=== PATIENT | male | born 1965 | race Caucasian/White ===

== ENCOUNTER 2019-07-02 13:34 | Inpatient (IN) | payer MEDICARE ==
[~2019-07-02] VITALS: Ht 185.4 cm; Wt 174.1 kg
[2019-07-02 14:05] VITALS: BP 154/93
--- NOTE | 2019-07-02 14:33 | NUR ---
NSG NOTE; ADMISSION DIRECT ADMIT TO ROOM 105 AT [address] CROWELL'S OFFICE ACCOMP BY SELF C/O COUGH X 5 DAYS AND HAD GONE TO DR CROWELL'S OFFICE TODAY TO GET PAIN MED REFILL. DR Guo NOTICED A COUGH AND PERFORMED A CHEST XR AND ADMITTED PT FOR PNEUMONIA
[2019-07-02] MEDS ORDERED: OXYC-316 PO ×2 (14:51)
[2019-07-02] MEDS ORDERED: LISI1TAB23 PO (14:51)
[2019-07-02] MEDS ORDERED: ATOR10TA60 PO (14:51)
[2019-07-02] MEDS ORDERED: SERT100T8 PO (14:51)
[2019-07-02] MEDS ORDERED: METF10007 PO (14:51)
[2019-07-02] MEDS ORDERED: TRAZ-120 PO (14:51)
[2019-07-02] MEDS ORDERED: DEXTROSE 50% 25 GM / 50ML DISP.SYRIN. IV PRN (15:15)
[2019-07-02 15:25] LABS: BASO # 0.1 x10^3/uL (0.0-0.2); BASO % 1 % (0-3); EOS # 0.6 x10^3/uL (0.0-0.7); EOS % 5 % (0-3); HEMATOCRIT 44.5 % (39.0-53.0); HEMOGLOBIN 14.3 g/dL (13.0-17.5); LYMPH # 1.7 x10^3/uL (1.0-4.8); LYMPH % 14 % (24-48); MEAN CORPUSCULAR HEMOGLOBIN 27 pg (25-35); MEAN CORPUSCULAR HGB CONC 32 g/dL (31-37); MEAN CORPUSCULAR VOLUME 84 fL (79-100); MONO # 0.9 x10^3/uL (0.0-1.1); MONO % 8 % (0-9); NEUT # 8.5 x10^3uL (1.8-7.7); NEUT % 72 % (31-73); PLATELET COUNT 284 x10^3/uL (140-400); RED BLOOD COUNT 5.29 x10^6/uL (4.30-5.70); RED CELL DISTRIBUTION WIDTH 16.5 % (11.5-14.5); WHITE BLOOD COUNT 11.9 x10^3/uL (4.0-11.0)
[2019-07-02 15:35] LABS: ALBUMIN 3.5 g/dL (3.4-5.0); ALBUMIN/GLOBULIN RATIO 0.8 (1.0-1.7); CALCIUM 8.7 mg/dL (8.5-10.1); CREATININE 1.1 mg/dL (0.7-1.3); GFR 70.6; MAGNESIUM 1.9 mg/dL (1.8-2.4); POTASSIUM 3.9 mmol/L (3.5-5.1); TOTAL BILIRUBIN 0.4 mg/dL (0.2-1.0); TOTAL PROTEIN 7.9 g/dL (6.4-8.2)
[2019-07-02] MEDS ORDERED: oxyCODONE/APAP 7.5/325 1 TAB TABLET PO PRN (16:30)
[2019-07-02] MEDS ORDERED: traZODone 50 MG TABLET. PO PRN (16:30)
[2019-07-02] MEDS: metFORMIN 500 MG TABLET PO SCH (17:13)
[2019-07-02] MEDS: AZITHROMYCIN 500 MG in IV NORMAL SALINE 250ML 250 ML IV SCH (17:14)
--- NOTE | 2019-07-02 17:19 | HP ---
ADMIT DATE: 07/02/2019 HISTORY OF PRESENT ILLNESS: The patient is a 53-year-old male patient who was referred from his primary care physician's office where he came there for his monthly visit. He apparently complained of shortness of breath and cough and has had chest x-ray, showed that he has bilateral lung infiltrate. In fact, he reports diffuse heterogenous opacities throughout both lungs. No consolidation are seen, prominent lung markings in the lower lung zones likely subsegmental atelectasis or scarring. The tracheobronchial tree and hilar structures are normal, no pleural effusion or pneumothorax. Heart and mediastinum showed the cardiomediastinal silhouette is within normal range. The final impression, the patient has multifocal bronchopneumonia with no airspace consolidation. Therefore, the patient was admitted directly to the hospital to be treated for community-acquired pneumonia. The patient himself denied any chest pain. Denied any chills, rigors or fever. PAST MEDICAL HISTORY: Significant for morbid obesity, obstructive sleep apnea, hypertension, hyperlipidemia, type 2 diabetes mellitus and recurrent UTIs. He has also chronic back pain. PAST SURGICAL HISTORY: Significant for bilateral inguinal hernia repair, right knee arthroscopic and left ankle arthroscopic surgery. ALLERGIES: He has no known drug allergies. MEDICATIONS: He is currently on following medications: He is on atorvastatin 10 mg at bedtime, lisinopril/hydrochlorothiazide one tablet daily, Endocet 7.5/325 one tablet 3 times a day, oxycodone/acetaminophen 7.5/325 one tablet every 6 hours, sertraline 100 mg at bedtime, trazodone 50 mg 1-2 tablets at bedtime, metformin 1000 mg twice a day. FAMILY HISTORY: He has 1 brother and 2 sisters, older sister has diabetes. Father in his late 60s because of alcoholism. Mother in late 60s because of breast cancer. SOCIAL HISTORY: He is , has a son and daughter. He never smoked, does not drink alcohol or use any recreational drugs. Currently disabled because of back pain. REVIEW OF SYSTEMS: The patient denied any blurring of vision, cataract, glaucoma or macular degeneration. Denied any earache, tinnitus or sensorineural deafness. Denied any nosebleeds, stuffy nose or postnasal drip. Denied any sore throat, sore tongue, toothache, hoarseness of voice or difficulty swallowing. Denied any nausea, vomiting, diarrhea or constipation. Denied any hematemesis, melena or hematochezia. Denied any dysuria, frequency, hematuria when I saw him today. PHYSICAL EXAMINATION: GENERAL: On arrival to the hospital, he looked well and was clearly in no apparent respiratory distress. There was no pallor, jaundice, cyanosis or thyromegaly. No jugular venous distention. No limb edema. VITAL SIGNS: His heart rate was 92, blood pressure was 154/93, temperature was 98.2, respiratory rate was 28 and oxygen saturation was 87% on room air. HEAD, EYES, EARS, NOSE AND THROAT: Showed normocephalic, atraumatic. NECK: Supple. HEART: Showed normal first and second heart sounds. No gallop or murmur. CHEST: Shows central trachea, equal bilateral expansion, air entry, vesicular breath sounds. I really could not appreciate any crepitation or rhonchi. ABDOMEN: Distended, soft, nontender. NEUROLOGIC: He was awake, alert, responding appropriately. All cranial nerves intact. EXTREMITIES: He moves extremities without difficulty, ambulates without assistance or assistive devices. LABORATORY DATA: On arrival showed a white cell q of 11,900, hemoglobin 14, hematocrit 44, MCV 84 and platelet count of 286,000 with normal manual differential. His chemistry showed a serum sodium 138, potassium 3.9, chloride 98, bicarbonate 29, anion gap of 11, BUN 12, creatinine 1.1, estimated GFR was 70 mL per minute. His glucose was 96, lactic acid was 1.3, calcium was 8.7, magnesium was 1.9. Total bilirubin, AST, ALT, alkaline phosphatase were normal. Total protein was 7.9, albumin was 3.5. ASSESSMENT AND PLAN: This is a 53-year-old male patient who was admitted directly from his primary care physician's office for community-acquired pneumonia. We will start him on IV Rocephin as well as Zithromax. We will continue all his medication and will also send blood for culture and sputum for culture and sensitivity and we will decide further management according to his response. ZULAY HERRING MD DR: YANELI/simon JOB#: [id number] / [id number]
[2019-07-02] MEDS ORDERED: BENZONATATE 100 MG CAPSULE. PO ONE (17:30)
[2019-07-02] MEDS: BENZONATATE 100 MG CAPSULE. PO SCH (17:36)
[2019-07-02 20:12] VITALS: BP 126/83
[2019-07-02] MEDS: IPRATRPIUM/ALBUTEROL 0.5/2.5MG 3 ML NEBU. NEB SCH (20:15)
[2019-07-02] MEDS: ATORVASTATIN CALCIUM 10 MG TABLET. PO SCH (21:40)
[2019-07-02 23:29] VITALS: BP 148/75
[2019-07-03 05:12] VITALS: BP 127/88
[2019-07-03] MEDS: IPRATRPIUM/ALBUTEROL 0.5/2.5MG 3 ML NEBU. NEB SCH ×4 (05:28→20:50)
[2019-07-03] MEDS: SERTRALINE 100 MG TABLET. PO SCH (07:41)
[2019-07-03] MEDS: oxyCODONE/APAP 7.5/325 1 TAB TABLET PO SCH (07:41)
[2019-07-03] MEDS: hydroCHLOROthiazide 12.5 MG CAPSULE PO SCH (07:42)
[2019-07-03] MEDS: metFORMIN 500 MG TABLET PO SCH ×2 (07:42→17:09)
[2019-07-03] MEDS: LACTOBACILLUS RHAMNOSUS GG 1 CAPSULE. PO SCH ×2 (07:42→20:51)
[2019-07-03] MEDS: BENZONATATE 100 MG CAPSULE. PO SCH ×3 (07:42→20:51)
[2019-07-03] MEDS: LISINOPRIL 10 MG TABLET PO SCH (07:42)
--- NOTE | 2019-07-03 08:36 | NUR ---
NURSING NOTE PT WAS IN HIS ROOM AT BEDSIDE THIS AM UPON ASSESSMENT AND MEDICATION ADMINISTRATION. PT C/O COUGHING X5 DAYS WITH CLEAR PHLEGM THAT GETS YELLOW AND GREEN AT TIMES. PT WAS A&O. PT DOES HAVE WHEEZING IN LEFT UPPER LOBE. PT CURRENTLY ON 2 L OF OXYGEN. PT STATES HE HAD A BM THIS AM AT 0300. DENIES ABD PAIN. PT STATES HE UNDERSTANDS HE MAY BE HERE FOR ANOTHER DAY BUT WOULD LIKE TO GET OUT TOMORROW AT THE LATEST DUE TO BUSY WEEKEND COMING UP. SPOKE WITH PT ABOUT PNEUMONIA AND THE IMPORTANCE OF ANTIBIOTICS. PT CALM AND COOPERATIVE. WILL CONTINUE TO MONITOR. [facility].
[2019-07-03 10:34] VITALS: BP 127/83
--- NOTE | 2019-07-03 14:27 | RAD ---
EXAM: PA and Lateral Views of the Chest DATE: 07/03/2019 8:00 AM INDICATION: Cough, shortness of breath COMPARISON: No Prior FINDINGS: The heart is not enlarged. Mediastinal and hilar contours are normal. Linear opacities in lower lobes likely scarring/atelectasis. Patchy opacities in the medial lung bases bilaterally may represent developing consolidation or atelectasis. No pleural effusion or pneumothorax. IMPRESSION: Patchy and linear opacities bilaterally may represent focal consolidation or atelectasis. Electronically signed by: Greg Eden MD (07/03/2019 2:24 PM) [id number]
--- NOTE | 2019-07-03 14:34 | PN ---
DATE: 07/03/2019 SUBJECTIVE: The patient is sitting on the edge of the bed comfortably in no apparent distress. On questioning him, he stated that he feels much better, less congested, and generally a good night sleep. PHYSICAL EXAMINATION: GENERAL: When I examined him, he looked well and was clearly in no apparent respiratory distress. No pallor, jaundice, cyanosis, or thyromegaly. No jugular venous distention. No limb edema. VITAL SIGNS: His heart rate was 82, blood pressure was 127/83, temperature was 97.8, respiratory rate 20, and oxygen saturation was 90% on 2 liters of oxygen. HEAD, EYES, EARS, NOSE, AND THROAT: Showed normocephalic and atraumatic. NECK: Supple. HEART: Showed normal first and second heart sounds. No gallop or murmur. CHEST: Clear to auscultation. No crepitation or rhonchi. ABDOMEN: Distended, soft, and nontender. NEUROLOGIC: He was awake, alert, and responding appropriately. All cranial nerves were intact. He moves extremities without difficulty. He ambulates without assistance or assistive devices. His intake was 1100 and output was incompletely recorded. LABORATORY DATA: As of yesterday, his serum sodium was 138, potassium 3.9, chloride 98, bicarbonate 29, anion gap of 11, BUN 12, and creatinine 1.1. Estimated GFR was 70 mL per minute. His glucose was 96, calcium was 8.7, and magnesium was 1.9. Total bilirubin, AST, ALT, and alkaline phosphatase were normal. Total protein is 7.9 and albumin is 3.5. His white cell count was 11,900, hemoglobin 14, hematocrit 44, MCV 84, and platelet count of . ASSESSMENT: A. Community-acquired pneumonia, for which, he was started on IV Rocephin and Zithromax. Other labs sent, blood for culture and sensitivity as well as sputum. Other medical problems include morbid obesity and obstructive sleep apnea and on CPAP machine at nighttime. B. Hypertension. C. Hyperlipidemia. D. Type 2 diabetes mellitus. E. Chronic back pain. F. Recurrent UTIs. PLAN: To continue with IV Rocephin and Zithromax. Continue to monitor his blood sugar. We will repeat his labs tomorrow and hopefully discharge him home to continue on oral antibiotic. ZULAY HERRING MD DR: Any JOB#: [id number] / [id number]
[2019-07-03 14:36] VITALS: BP 145/88
[2019-07-03] MEDS: AZITHROMYCIN 500 MG in IV NORMAL SALINE 250ML 250 ML IV SCH (17:09)
[2019-07-03 19:28] VITALS: BP 117/80
[2019-07-03] MEDS: ATORVASTATIN CALCIUM 10 MG TABLET. PO SCH (20:51)
[2019-07-03 23:03] VITALS: BP 133/77
[2019-07-04 05:53] VITALS: BP 130/79
[2019-07-04 05:53] LABS: HEMATOCRIT 44.7 % (39.0-53.0); HEMOGLOBIN 14.3 g/dL (13.0-17.5); RED BLOOD COUNT 5.26 x10^6/uL (4.30-5.70); RED CELL DISTRIBUTION WIDTH 16.9 % (11.5-14.5); WHITE BLOOD COUNT 10.9 x10^3/uL (4.0-11.0)
[2019-07-04 06:09] LABS: ALBUMIN 3.2 g/dL (3.4-5.0); ALBUMIN/GLOBULIN RATIO 0.7 (1.0-1.7); CALCIUM 8.9 mg/dL (8.5-10.1); CREATININE 1.1 mg/dL (0.7-1.3); GFR 70.6; POTASSIUM 3.3 mmol/L (3.5-5.1); TOTAL BILIRUBIN 0.3 mg/dL (0.2-1.0); TOTAL PROTEIN 7.9 g/dL (6.4-8.2)
[2019-07-04] MEDS ORDERED: POTASSIUM CHLORIDE 20 MEQ TABLET.ER. PO ONE ×2 (06:30→15:00)
[2019-07-04] MEDS: IPRATRPIUM/ALBUTEROL 0.5/2.5MG 3 ML NEBU. NEB SCH ×3 (06:31→15:30)
[2019-07-04] MEDS: SERTRALINE 100 MG TABLET. PO SCH (08:11)
[2019-07-04] MEDS: LISINOPRIL 10 MG TABLET PO SCH (08:12)
[2019-07-04] MEDS: hydroCHLOROthiazide 12.5 MG CAPSULE PO SCH (08:12)
[2019-07-04] MEDS: metFORMIN 500 MG TABLET PO SCH (08:12)
[2019-07-04] MEDS: LACTOBACILLUS RHAMNOSUS GG 1 CAPSULE. PO SCH (08:12)
[2019-07-04] MEDS: BENZONATATE 100 MG CAPSULE. PO SCH ×2 (08:13→14:00)
[2019-07-04] MEDS: oxyCODONE/APAP 7.5/325 1 TAB TABLET PO SCH (08:13)
[2019-07-04 10:26] VITALS: BP 112/67
[2019-07-04] MEDS ORDERED: DOXY100C2 PO (14:38)
--- NOTE | 2019-07-04 14:38 | NUR ---
NURSING NOTE PT STATES THE CAPACITY PLANNER CAME IN TO HIS ROOM, HE TOLD HER HE DID NOT LIKE THE FOOD AND HIS FAMILY BRINGS HIM FOOD. STATES THE CAPACITY PLANNER TOLD HIM THE FOOD IS GOOD AND INSISTS HE TRY THE SALAD. PT STATES I AM NOT A CHILD AND I MAKE MY OWN FOOD DECISIONS AND I TOLD HER TO LEAVE MY ROOM. PT STATES HE DOES NOT LIKE THE WAY SHE TALKED TO HIM. [facility].
[2019-07-04] MEDS ORDERED: AZITHROMYCIN 250 MG TABLET. PO ONE (15:00)
--- NOTE | 2019-07-04 16:05 | DS ---
DATE OF DISCHARGE: HOSPITAL COURSE: The patient is a 53-year-old male patient who was admitted directly from his primary care physician where he was noted to have pneumonia on a chest x-ray done as he complained of shortness of breath and he was admitted and was started on community-acquired pneumonia protocol and was treated with IV ceftriaxone as well as Zithromax. He did very well. When I asked him this afternoon, he stated he is feeling very much better than he came in. PHYSICAL EXAMINATION: GENERAL: When I examined him, he was sitting on the edge of the bed comfortably in no apparent distress. No pallor, jaundice, cyanosis or thyromegaly. No jugular venous distention. No limb edema. VITAL SIGNS: His heart rate was 76, blood pressure was 112/67, temperature was 97.6, respiratory rate was 20, and oxygen saturation was 90% on 2 liters of oxygen. HEAD, EYES, EARS, NOSE AND THROAT: Showed normocephalic, atraumatic. NECK: Supple. HEART: Showed normal first and second heart sounds. No gallop or murmur. CHEST: Clear to auscultation. No crepitation or rhonchi. ABDOMEN: Distended, soft, nontender. NEUROLOGIC: He was awake, alert, responding appropriately. All cranial nerves are intact. He moves extremities without difficulty. His intake was 1100, no output was recorded. LABORATORY DATA: This morning showed a white cell count of 10,900, hemoglobin 14, hematocrit 44, MCV 85 and platelet count 262,000. Serum sodium was 140, potassium 3.3, chloride 100, bicarbonate 29, anion gap of 11, BUN 13, creatinine 1.1, estimated GFR was 70 mL per minute, his glucose 114, calcium was 8.9. Total bilirubin, AST, ALT, alkaline phosphatase were normal. Total protein 7.9, albumin was 3.2. DISCHARGE MEDICATIONS: He was discharged home to continue on doxycycline 100 mg twice a day for 7 more days, Lipitor 10 mg at bedtime, lisinopril/hydrochlorothiazide 10/12.5 mg once a day, metformin 1000 mg twice a day, oxycodone/APAP 7.5/325 one tablet p.o. daily and 1 tablet every 6 hours as needed, sertraline 100 mg daily and trazodone 50 mg 1-2 tablets at bedtime. FINAL DISCHARGE DIAGNOSES: 1. Community-acquired pneumonia, resolving. 2. Morbid obesity. 3. Obstructive sleep apnea. 4. Hypertension. 5. Hyperlipidemia. 6. Type 2 diabetes mellitus. 7. Chronic back pain. 8. Recurrent urinary tract infections. ZULAY HERRING MD DR: YANELI/simon JOB#: [id number] / [id number]
--- NOTE | 2019-07-04 16:12 | NUR ---
NURSING NOTE PT WAS SITTING AT BEDSIDE AND C/O LIGHTHEADED. PT OXYGEN WAS CHECKED AND WAS 84% ON ROOM AIR. PT WAS PUT ON 2 LITERS OF OXYGEN AND DID COME BACK UP TO 90%. CASE MANAGEMENT REFERRAL SENT FOR EVALUATION OF HOME OXYGEN. [facility].
--- NOTE | 2019-07-04 16:39 | NUR ---
NURSING NOTE DISCHARGE PT DISCHARGED HOME WITH OXYGEN AT 1639 VIA AMBULATION ACCOMPANIED BY . PT GIVEN WRITTEN AND VERBAL DISCHARGE INSTRUCTIONS. NO SCRIPTS GIVEN. PT HAS DOXY SCRIPT AT HOME THAT HE RECEIVED FROM PCP OFFICE THE DAY OF ADMISSION. NO COMPLICATIONS. [facility].
== END 2019-07-04 16:42 | disposition home or self-care (01) | DRG 193 ==
LOC: 1 SOUTH 13:34
PROVIDERS: ADMIT Internal Medicine; ATTEND Internal Medicine
DX: J18.9 Pneumonia, unspecified organism (principal); J96.01 Acute respiratory failure with hypoxia; Z68.43 Body mass index [BMI] 50.0-59.9, adult; E11.9 Type 2 diabetes mellitus without complications; E66.01 Morbid (severe) obesity due to excess calories; E78.5 Hyperlipidemia, unspecified; G47.33 Obstructive sleep apnea (adult) (pediatric); G89.29 Other chronic pain; I10 Essential (primary) hypertension; Z80.3 Family history of malignant neoplasm of breast; Z83.3 Family history of diabetes mellitus; Z87.440 Personal history of urinary (tract) infections
CPT/HCPCS: 36415; 71046; 80053; 82947; 83605; 83735; 85025; 85027; 87040; 87070; 87205; 94640; 94760; J0456; J0696; J7050; J7620